=== PATIENT | female | born 1930 | race Caucasian/White ===

== ENCOUNTER 2017-04-02 17:29 | Inpatient (IN) | payer MEDICARE, OTHER ==
[~2017-04-02] VITALS: Ht 149.9 cm; Wt 45.4 kg
[2017-04-02] MEDS ORDERED: DIAZ5TAB4 PO (17:58)
[2017-04-02] MEDS ORDERED: HYDR-552 PO (17:58)
[2017-04-02] MEDS ORDERED: ACET-2154 PO (17:58)
[2017-04-02] MEDS ORDERED: MAG355OR18 PO (17:58)
[2017-04-02] MEDS ORDERED: ZOLP5TAB8 PO (17:58)
[2017-04-02] MEDS ORDERED: PANT40TA4 PO (17:58)
[2017-04-02] MEDS ORDERED: HYDR-4075 PO (17:58)
[2017-04-02] MEDS ORDERED: LORA1TAB PO (17:58)
[2017-04-02] MEDS ORDERED: NITR100C6 PO (17:58)
[2017-04-02] MEDS ORDERED: LACT-15 PO (17:58)
[2017-04-02] MEDS ORDERED: AMLO2.5T PO (17:58)
[2017-04-02] MEDS ORDERED: LEVO125T8 PO (17:58)
[2017-04-02] MEDS ORDERED: Z GUARD REMEDY PASTE 57 GM TUBE TOP PRN (18:00)
[2017-04-02 18:39] VITALS: BP 144/85
[2017-04-02] MEDS ORDERED: DIAZEPAM 5 MG TABLET PO PRN (20:45)
[2017-04-02] MEDS ORDERED: ZOLPIDEM 5 MG TABLET PO PRN (20:45)
[2017-04-02] MEDS ORDERED: ACETAMINOPHEN 325 MG TABLET PO PRN (20:45)
[2017-04-02] MEDS ORDERED: MAG HYDROX/AL HYDROX/SIMETH 30 ML LIQUID UDC PO PRN (20:45)
[2017-04-02 21:02] VITALS: BP 169/71
[2017-04-02] MEDS: NITROFURANTOIN/NITROFURAN MAC 100 MG CAPSULE PO SCH (21:23)
[2017-04-02] MEDS ORDERED: DIAZEPAM 5 MG TABLET ONE (21:33)
[2017-04-03] MEDS: HYDROCODONE/APAP 5-325MG TABLET PO PRN ×2 (06:33→23:21)
[2017-04-03 06:45] LABS: EOSINOPHILS # (AUTO) 0.3 K/uL (0.0-0.7); EOSINOPHILS % (AUTO) 3.5 % (0.0-7.0); HEMATOCRIT 37.4 % (37-47); HEMOGLOBIN 12.7 G/DL (12.0-16.0); LYMPHOCYTES # (AUTO) 1.5 K/UL (0.8-4.8); LYMPHOCYTES % (AUTO) 21.5 % (20.5-51.5); MEAN CORPUSCULAR HEMOGLOBIN 29.7 UUG (27.0-31.0); MEAN CORPUSCULAR HGB CONC 34 g/dL (32.0-37.0); MEAN CORPUSCULAR VOLUME 87.7 FL (81.0-99.0); MONOCYTES # (AUTO) 0.5 K/UL (0.1-1.30); MONOCYTES % (AUTO) 7.4 % (0.0-11.0); NEUTROPHILS # (AUTO) 4.9 K/UL (1.8-8.9); NEUTROPHILS % (AUTO) 67.6 % (38.5-71.5); PLATELET COUNT (AUTO) 297 K/UL (150-450); RED BLOOD CELL COUNT(AUTO) 4.27 MIL/UL (4.2-5.4); WHITE BLOOD COUNT (AUTO) 7.2 K/UL (4.0-11.2)
[2017-04-03 06:55] LABS: ALANINE AMINOTRANSFERASE 22 U/L (14-59); ALKALINE PHOSPHATASE 249 U/L (50-136); ASPARTATE AMINOTRANSFERASE 26 U/L (15-37); BILIRUBIN,TOTAL 0.3 mg/dL (0.2-1.0); CARBON DIOXIDE 29 mmol/L (21-32); CHLORIDE 106 mmol/L (98-107); CHOLESTEROL 141 mg/dL (<200); CREATININE 0.8 mg/dL (0.6-1.3); GLUCOSE 89 mg/dL (74-106); HDL CHOLESTEROL 52 mg/dL (40-60); MAGNESIUM 1.9 mg/dL (1.8-2.4); PHOSPHOROUS 3.2 mg/dL (2.5-4.9); POTASSIUM 4.2 mmol/L (3.5-5.1); TOTAL PROTEIN, SERUM 6.4 g/dL (6.4-8.2); TRIGLYCERIDES 56 MG/DL (30-150); UREA NITROGEN, BLOOD 20 mg/dL (7-18)
[2017-04-03 07:06] LABS: THYROID STIMULATING HORMONE 19.031 mIU/mL (0.358-3.740)
[2017-04-03 08:04] VITALS: BP 144/66
[2017-04-03] MEDS: LEVOTHYROXINE SODIUM 125 MCG TABLET PO SCH (08:56)
[2017-04-03] MEDS: NITROFURANTOIN/NITROFURAN MAC 100 MG CAPSULE PO SCH ×2 (08:57→21:07)
[2017-04-03] MEDS: AMLODIPINE 2.5 MG TABLET PO SCH (08:57)
[2017-04-03] MEDS: PANTOPRAZOLE SODIUM 40 MG TABLET.DR PO SCH (08:57)
[2017-04-03] MEDS: BOOST PLUS 237 ML LIQUID (VERY VANILLA) PO SCH ×2 (09:19→17:16)
[2017-04-03] MEDS ORDERED: PERMETHRIN 5% CREAM 60 GM TUBE TP ONE (10:00)
[2017-04-03] MEDS ORDERED: HYDROCORTISONE 1% LOTION 118 ML BOTTLE TOP PRN (12:45)
[2017-04-03 20:00] VITALS: BP 181/75
[2017-04-03] MEDS: METOPROLOL TARTRATE 25 MG TABLET PO SCH (21:07)
[2017-04-03] MEDS: DIAZEPAM 2 MG TABLET PO PRN (21:23)
[2017-04-03 22:00] VITALS: BP 140/80
[2017-04-04] MEDS: PANTOPRAZOLE SODIUM 40 MG TABLET.DR PO SCH (05:51)
[2017-04-04] MEDS: LEVOTHYROXINE SODIUM 125 MCG TABLET PO SCH (05:51)
[2017-04-04 08:00] VITALS: BP 163/91
[2017-04-04] MEDS: METOPROLOL TARTRATE 25 MG TABLET PO SCH ×2 (09:22→20:31)
[2017-04-04] MEDS: NITROFURANTOIN/NITROFURAN MAC 100 MG CAPSULE PO SCH ×2 (09:22→20:30)
[2017-04-04] MEDS: HYDROCODONE/APAP 5-325MG TABLET PO PRN ×2 (09:22→20:32)
[2017-04-04] MEDS: AMLODIPINE 2.5 MG TABLET PO SCH (09:22)
[2017-04-04] MEDS: BOOST PLUS 237 ML LIQUID (VERY VANILLA) PO SCH (10:03)
[2017-04-04 20:14] VITALS: BP 137/66
[2017-04-04] MEDS: DIAZEPAM 2 MG TABLET PO PRN (23:29)
[2017-04-05] MEDS: PANTOPRAZOLE SODIUM 40 MG TABLET.DR PO SCH (06:10)
[2017-04-05] MEDS: LEVOTHYROXINE SODIUM 125 MCG TABLET PO SCH (06:11)
[2017-04-05 08:00] VITALS: BP 135/66
[2017-04-05] MEDS: BOOST PLUS 237 ML LIQUID (VERY VANILLA) PO SCH ×2 (08:10→16:25)
[2017-04-05] MEDS: NITROFURANTOIN/NITROFURAN MAC 100 MG CAPSULE PO SCH ×2 (08:54→21:57)
[2017-04-05] MEDS: METOPROLOL TARTRATE 25 MG TABLET PO SCH ×2 (08:55→21:57)
[2017-04-05] MEDS: AMLODIPINE 2.5 MG TABLET PO SCH (08:56)
[2017-04-05] MEDS: HYDROCODONE/APAP 5-325MG TABLET PO PRN (17:43)
[2017-04-05 20:00] VITALS: BP 132/62
[2017-04-05 21:55] VITALS: BP 135/63
[2017-04-06] MEDS: HYDROCODONE/APAP 5-325MG TABLET PO PRN ×3 (01:18→18:20)
[2017-04-06] MEDS: DIAZEPAM 2 MG TABLET PO PRN ×2 (03:08→21:08)
[2017-04-06] MEDS: PANTOPRAZOLE SODIUM 40 MG TABLET.DR PO SCH (06:37)
[2017-04-06] MEDS: LEVOTHYROXINE SODIUM 125 MCG TABLET PO SCH (06:37)
[2017-04-06 08:18] VITALS: BP 142/69
[2017-04-06] MEDS: NITROFURANTOIN/NITROFURAN MAC 100 MG CAPSULE PO SCH ×2 (09:08→20:59)
[2017-04-06] MEDS: AMLODIPINE 2.5 MG TABLET PO SCH (09:08)
[2017-04-06] MEDS: ASPIRIN EC 81 MG TABLET.DR PO SCH (09:08)
[2017-04-06] MEDS: CHOLECALCIFEROL 1,000 UNIT TABLET PO SCH (09:08)
[2017-04-06] MEDS: METOPROLOL TARTRATE 25 MG TABLET PO SCH ×2 (09:09→21:02)
[2017-04-06] MEDS: BOOST PLUS 237 ML LIQUID (VERY VANILLA) PO SCH ×2 (09:09→18:22)
[2017-04-06 20:00] VITALS: BP 125/69
[2017-04-07] MEDS: HYDROCODONE/APAP 5-325MG TABLET PO PRN ×4 (01:16→20:59)
[2017-04-07] MEDS: PANTOPRAZOLE SODIUM 40 MG TABLET.DR PO SCH (05:38)
[2017-04-07] MEDS: LEVOTHYROXINE SODIUM 125 MCG TABLET PO SCH (05:38)
[2017-04-07] MEDS: ASPIRIN EC 81 MG TABLET.DR PO SCH (08:42)
[2017-04-07] MEDS: AMLODIPINE 2.5 MG TABLET PO SCH (08:42)
[2017-04-07] MEDS: CHOLECALCIFEROL 1,000 UNIT TABLET PO SCH (08:44)
[2017-04-07] MEDS: METOPROLOL TARTRATE 25 MG TABLET PO SCH ×2 (08:44→20:54)
[2017-04-07] MEDS: BOOST PLUS 237 ML LIQUID (VERY VANILLA) PO SCH ×2 (08:45→18:49)
[2017-04-07] MEDS: NITROFURANTOIN/NITROFURAN MAC 100 MG CAPSULE PO SCH ×2 (08:45→20:53)
[2017-04-07 08:46] VITALS: BP 127/49
[2017-04-07 20:07] VITALS: BP 161/92
[2017-04-07] MEDS: DIAZEPAM 2 MG TABLET PO PRN (21:40)
[2017-04-08] MEDS: HYDROCODONE/APAP 5-325MG TABLET PO PRN ×2 (01:22→09:13)
[2017-04-08] MEDS: LEVOTHYROXINE SODIUM 125 MCG TABLET PO SCH (07:13)
[2017-04-08] MEDS: PANTOPRAZOLE SODIUM 40 MG TABLET.DR PO SCH (07:13)
[2017-04-08 07:30] VITALS: BP 156/65
[2017-04-08 07:32] LABS: BASOPHILS # (AUTO) 0.1 K/uL (0.0-8.0); BASOPHILS % (AUTO) 0.7 % (0.0-2.0); EOSINOPHILS # (AUTO) 0.3 K/uL (0.0-0.7); EOSINOPHILS % (AUTO) 3.7 % (0.0-7.0); HEMATOCRIT 36.5 % (37-47); HEMOGLOBIN 12.2 G/DL (12.0-16.0); LYMPHOCYTES # (AUTO) 1.4 K/UL (0.8-4.8); LYMPHOCYTES % (AUTO) 19.5 % (20.5-51.5); MEAN CORPUSCULAR HEMOGLOBIN 29.5 UUG (27.0-31.0); MEAN CORPUSCULAR HGB CONC 33 g/dL (32.0-37.0); MEAN CORPUSCULAR VOLUME 88.3 FL (81.0-99.0); MONOCYTES # (AUTO) 0.4 K/UL (0.1-1.30); MONOCYTES % (AUTO) 5.8 % (0.0-11.0); NEUTROPHILS # (AUTO) 5.1 K/UL (1.8-8.9); NEUTROPHILS % (AUTO) 70.3 % (38.5-71.5); PLATELET COUNT (AUTO) 287 K/UL (150-450); RED BLOOD CELL COUNT(AUTO) 4.13 MIL/UL (4.2-5.4); WHITE BLOOD COUNT (AUTO) 7.3 K/UL (4.0-11.2)
[2017-04-08] MEDS: BOOST PLUS 237 ML LIQUID (VERY VANILLA) PO SCH ×2 (07:41→17:00)
[2017-04-08 08:09] LABS: ALANINE AMINOTRANSFERASE 32 U/L (14-59); ALKALINE PHOSPHATASE 252 U/L (50-136); ASPARTATE AMINOTRANSFERASE 29 U/L (15-37); BILIRUBIN,TOTAL 0.3 mg/dL (0.2-1.0); CARBON DIOXIDE 26 mmol/L (21-32); CHLORIDE 103 mmol/L (98-107); CREATININE 0.9 mg/dL (0.6-1.3); GLUCOSE 94 mg/dL (74-106); MAGNESIUM 1.9 mg/dL (1.8-2.4); PHOSPHOROUS 3.6 mg/dL (2.5-4.9); TOTAL PROTEIN, SERUM 6.6 g/dL (6.4-8.2); UREA NITROGEN, BLOOD 23 mg/dL (7-18)
[2017-04-08] MEDS: ASPIRIN EC 81 MG TABLET.DR PO SCH (08:55)
[2017-04-08] MEDS: AMLODIPINE 2.5 MG TABLET PO SCH (08:55)
[2017-04-08] MEDS: NITROFURANTOIN/NITROFURAN MAC 100 MG CAPSULE PO SCH ×2 (08:55→21:02)
[2017-04-08] MEDS: CHOLECALCIFEROL 1,000 UNIT TABLET PO SCH (08:56)
[2017-04-08] MEDS: METOPROLOL TARTRATE 25 MG TABLET PO SCH ×2 (08:56→21:02)
[2017-04-08 19:49] VITALS: BP 153/55
[2017-04-08] MEDS: DIAZEPAM 2 MG TABLET PO PRN (22:08)
[2017-04-09] MEDS: PANTOPRAZOLE SODIUM 40 MG TABLET.DR PO SCH (06:39)
[2017-04-09] MEDS: LEVOTHYROXINE SODIUM 125 MCG TABLET PO SCH (06:39)
[2017-04-09 07:30] VITALS: BP 138/61
[2017-04-09] MEDS: METOPROLOL TARTRATE 25 MG TABLET PO SCH ×2 (08:18→20:39)
[2017-04-09] MEDS: AMLODIPINE 5 MG TABLET PO SCH (08:18)
[2017-04-09] MEDS: CHOLECALCIFEROL 1,000 UNIT TABLET PO SCH (08:18)
[2017-04-09] MEDS: ASPIRIN EC 81 MG TABLET.DR PO SCH (08:18)
[2017-04-09] MEDS: BOOST PLUS 237 ML LIQUID (VERY VANILLA) PO SCH ×2 (08:19→17:06)
[2017-04-09] MEDS ORDERED: AMLODIPINE 2.5 MG TABLET PO SCH (09:00)
[2017-04-09 20:00] VITALS: BP 129/66
[2017-04-09] MEDS: DIAZEPAM 2 MG TABLET PO PRN (22:27)
[2017-04-10] MEDS: LEVOTHYROXINE SODIUM 125 MCG TABLET PO SCH (06:12)
[2017-04-10] MEDS: PANTOPRAZOLE SODIUM 40 MG TABLET.DR PO SCH (06:12)
[2017-04-10 07:30] VITALS: BP 123/62
[2017-04-10] MEDS: AMLODIPINE 5 MG TABLET PO SCH (08:41)
[2017-04-10] MEDS: METOPROLOL TARTRATE 25 MG TABLET PO SCH ×2 (08:41→20:28)
[2017-04-10] MEDS: BOOST PLUS 237 ML LIQUID (VERY VANILLA) PO SCH ×2 (08:42→17:14)
[2017-04-10] MEDS: ASPIRIN EC 81 MG TABLET.DR PO SCH (08:42)
[2017-04-10] MEDS: CHOLECALCIFEROL 1,000 UNIT TABLET PO SCH (08:42)
[2017-04-10 20:00] VITALS: BP 123/57
[2017-04-10] MEDS: DIAZEPAM 2 MG TABLET PO PRN (20:26)
[2017-04-11] MEDS: LEVOTHYROXINE SODIUM 125 MCG TABLET PO SCH (06:12)
[2017-04-11] MEDS: PANTOPRAZOLE SODIUM 40 MG TABLET.DR PO SCH (06:12)
[2017-04-11 08:00] VITALS: BP 140/57
[2017-04-11] MEDS: METOPROLOL TARTRATE 25 MG TABLET PO SCH ×2 (08:48→20:15)
[2017-04-11] MEDS: AMLODIPINE 5 MG TABLET PO SCH (08:49)
[2017-04-11] MEDS: BOOST PLUS 237 ML LIQUID (VERY VANILLA) PO SCH ×2 (08:49→17:40)
[2017-04-11] MEDS: ASPIRIN EC 81 MG TABLET.DR PO SCH (08:49)
[2017-04-11] MEDS: CHOLECALCIFEROL 1,000 UNIT TABLET PO SCH (08:49)
[2017-04-11] MEDS: DIAZEPAM 2 MG TABLET PO PRN (20:18)
[2017-04-11 20:19] VITALS: BP 135/58
[2017-04-11] MEDS ORDERED: ENOXAPARIN SODIUM 40 MG/0.4 ML DISP.SYRIN SQ SCH (23:00)
[2017-04-11] MEDS ORDERED: ENOXAPARIN SODIUM 40 MG/0.4 ML DISP.SYRIN SQ ONE (23:51)
[2017-04-12] MEDS: PANTOPRAZOLE SODIUM 40 MG TABLET.DR PO SCH (05:59)
[2017-04-12] MEDS: LEVOTHYROXINE SODIUM 125 MCG TABLET PO SCH (05:59)
[2017-04-12] MEDS: CHOLECALCIFEROL 1,000 UNIT TABLET PO SCH (08:05)
[2017-04-12] MEDS: METOPROLOL TARTRATE 25 MG TABLET PO SCH ×2 (08:06→20:50)
[2017-04-12] MEDS: BOOST PLUS 237 ML LIQUID (VERY VANILLA) PO SCH ×2 (08:06→17:00)
[2017-04-12] MEDS: ASPIRIN EC 81 MG TABLET.DR PO SCH (08:06)
[2017-04-12] MEDS: AMLODIPINE 5 MG TABLET PO SCH (08:06)
[2017-04-12 08:21] VITALS: BP 138/65
[2017-04-12] MEDS: ENOXAPARIN SODIUM 40 MG/0.4 ML DISP.SYRIN SQ SCH (20:48)
[2017-04-12 22:26] VITALS: BP 139/72
[2017-04-13] MEDS: DIAZEPAM 2 MG TABLET PO PRN ×2 (00:29→21:17)
[2017-04-13] MEDS: PANTOPRAZOLE SODIUM 40 MG TABLET.DR PO SCH (06:08)
[2017-04-13] MEDS: LEVOTHYROXINE SODIUM 125 MCG TABLET PO SCH (06:08)
[2017-04-13] MEDS: BOOST PLUS 237 ML LIQUID (VERY VANILLA) PO SCH ×2 (08:00→17:55)
[2017-04-13 08:38] VITALS: BP 125/64
[2017-04-13] MEDS: METOPROLOL TARTRATE 25 MG TABLET PO SCH ×2 (09:00→21:00)
[2017-04-13] MEDS: CHOLECALCIFEROL 1,000 UNIT TABLET PO SCH (09:12)
[2017-04-13] MEDS: ASPIRIN EC 81 MG TABLET.DR PO SCH (09:12)
[2017-04-13] MEDS: AMLODIPINE 5 MG TABLET PO SCH (09:12)
[2017-04-13 20:00] VITALS: BP 121/60
[2017-04-13] MEDS: ENOXAPARIN SODIUM 40 MG/0.4 ML DISP.SYRIN SQ SCH ×2 (21:00→21:03)
[2017-04-13 22:00] VITALS: BP 121/66
[2017-04-14] MEDS: LEVOTHYROXINE SODIUM 125 MCG TABLET PO SCH (06:05)
[2017-04-14] MEDS: PANTOPRAZOLE SODIUM 40 MG TABLET.DR PO SCH (06:05)
[2017-04-14] MEDS: BOOST PLUS 237 ML LIQUID (VERY VANILLA) PO SCH ×2 (08:00→17:42)
[2017-04-14 08:58] VITALS: BP 130/61
[2017-04-14] MEDS: METOPROLOL TARTRATE 25 MG TABLET PO SCH ×3 (09:16→21:00)
[2017-04-14] MEDS: CHOLECALCIFEROL 1,000 UNIT TABLET PO SCH (09:16)
[2017-04-14] MEDS: ASPIRIN EC 81 MG TABLET.DR PO SCH (09:17)
[2017-04-14] MEDS: AMLODIPINE 5 MG TABLET PO SCH (09:17)
[2017-04-14 20:00] VITALS: BP 141/60
[2017-04-14] MEDS: ENOXAPARIN SODIUM 40 MG/0.4 ML DISP.SYRIN SQ SCH ×2 (20:14→21:00)
[2017-04-14] MEDS: DIAZEPAM 2 MG TABLET PO PRN (22:29)
[2017-04-15] MEDS: LEVOTHYROXINE SODIUM 125 MCG TABLET PO SCH (06:22)
[2017-04-15] MEDS: PANTOPRAZOLE SODIUM 40 MG TABLET.DR PO SCH (06:22)
[2017-04-15 07:30] VITALS: BP 140/63
[2017-04-15] MEDS: METOPROLOL TARTRATE 25 MG TABLET PO SCH ×2 (08:32→20:50)
[2017-04-15] MEDS: CHOLECALCIFEROL 1,000 UNIT TABLET PO SCH (08:32)
[2017-04-15] MEDS: ASPIRIN EC 81 MG TABLET.DR PO SCH (08:32)
[2017-04-15] MEDS: BOOST PLUS 237 ML LIQUID (VERY VANILLA) PO SCH ×2 (08:33→17:27)
[2017-04-15] MEDS: AMLODIPINE 5 MG TABLET PO SCH (08:33)
[2017-04-15 20:00] VITALS: BP 135/62
[2017-04-15] MEDS: ENOXAPARIN SODIUM 40 MG/0.4 ML DISP.SYRIN SQ SCH (20:55)
[2017-04-15] MEDS: DIAZEPAM 2 MG TABLET PO PRN (21:20)
[2017-04-15 23:00] VITALS: BP 135/62
[2017-04-16] MEDS: PANTOPRAZOLE SODIUM 40 MG TABLET.DR PO SCH (06:39)
[2017-04-16] MEDS: LEVOTHYROXINE SODIUM 125 MCG TABLET PO SCH (06:39)
[2017-04-16 07:30] VITALS: BP 129/57
[2017-04-16] MEDS: CHOLECALCIFEROL 1,000 UNIT TABLET PO SCH (08:23)
[2017-04-16] MEDS: ASPIRIN EC 81 MG TABLET.DR PO SCH (08:23)
[2017-04-16] MEDS: AMLODIPINE 5 MG TABLET PO SCH (08:23)
[2017-04-16] MEDS: BOOST PLUS 237 ML LIQUID (VERY VANILLA) PO SCH ×2 (08:23→17:18)
[2017-04-16 08:24] VITALS: BP 129/57
[2017-04-16] MEDS: METOPROLOL TARTRATE 25 MG TABLET PO SCH ×2 (08:24→20:56)
[2017-04-16] MEDS: ENOXAPARIN SODIUM 40 MG/0.4 ML DISP.SYRIN SQ SCH (20:57)
== END 2017-04-16 21:25 | disposition home health service (06) | DRG 292 ==
PROVIDERS: ADMIT Physical Medicine & Rehabilitation Pain Medicine; ATTEND Physical Medicine & Rehabilitation Pain Medicine
DX: I11.0 Hypertensive heart disease with heart failure (principal); N39.0 Urinary tract infection, site not specified; D68.59 Other primary thrombophilia; I31.3 Pericardial effusion (noninflammatory); E46 Unspecified protein-calorie malnutrition; I50.32 Chronic diastolic (congestive) heart failure; R53.81 Other malaise; R29.6 Repeated falls; M16.0 Bilateral primary osteoarthritis of hip; R29.810 Facial weakness; R42 Dizziness and giddiness; R47.81 Slurred speech; Z88.6 Allergy status to analgesic agent; B85.2 Pediculosis, unspecified; B96.20 Unspecified Escherichia coli [E. coli] as the cause of diseases classified elsewhere; E03.9 Hypothyroidism, unspecified; E55.9 Vitamin D deficiency, unspecified; E88.09 Other disorders of plasma-protein metabolism, not elsewhere classified; F17.210 Nicotine dependence, cigarettes, uncomplicated; F41.9 Anxiety disorder, unspecified; I08.3 Combined rheumatic disorders of mitral, aortic and tricuspid valves; M24.562 Contracture, left knee; M85.80 Other specified disorders of bone density and structure, unspecified site; Z86.73 Personal history of transient ischemic attack (TIA), and cerebral infarction without residual deficits; R45.1 Restlessness and agitation; R53.1 Weakness; M79.605 Pain in left leg; Z68.20 Body mass index [BMI] 20.0-20.9, adult; I51.7 Cardiomegaly
CPT/HCPCS: 36415; 71010; 82306; 83735; 84100; 84443; 85025; 92610; 97110; 97112; 97116; 97161; 97530; 97535; J1650